=== PATIENT | male | born 1980 | race Hispanic/Latino ===

== ENCOUNTER 2021-06-02 11:45 | Emergency (ER) | payer OTHER ==
[~2021-06-02] VITALS: Ht 175.3 cm; Wt 95.3 kg
[~2021-06-02 11:45] MED LIST: [UNRECOGNIZED DRUG - OTHER] PO
[2021-06-02] MEDS ORDERED: KETOROLAC TROMETHAMINE 60 MG/2 ML VIAL IM ONE (12:30)
[2021-06-02] MEDS ORDERED: KETOROLAC TROMETHAMINE 60 MG/2 ML VIAL ONE (12:36)
[2021-06-02] MEDS ORDERED: TYLENOL # 31 EA PO (12:37)
[2021-06-02 12:52] VITALS: BP 171/97
== END 2021-06-02 12:52 | disposition home or self-care (01) ==
LOC: FSED 12:00
DX: S93.401A Sprain of unspecified ligament of right ankle, initial encounter (principal)
CPT/HCPCS: 73610; 99283; J1885